=== PATIENT | female | born 1985 | race Two or more races ===

== ENCOUNTER 2017-04-21 05:26 | Inpatient (IN) | payer SELFPAY ==
[~2017-04-21] VITALS: Ht 157.5 cm; Wt 73.5 kg
[2017-04-21] MEDS ORDERED: SODIUM CHLORIDE 0.9% 1,000 ML IV ONE ×2 (06:11→13:31)
[2017-04-21] MEDS ORDERED: MORPHINE SULFATE 4 MG/ML CPJ (NOT FOR IM USE) IV STA (06:11)
[2017-04-21] MEDS ORDERED: ONDANSETRON HCL 4MG/2ML VIAL IV STA (06:11)
[2017-04-21 06:42] LABS: BASOPHILS % 0.4 % (0.0-2.0); EOSINOPHILS % 0.9 % (0.0-5.0); HEMOGLOBIN. 10.8 g/dL (12.0-16.0); LYMPHOCYTES % 9.5 % (20.0-50.0); MEAN CORPUSCULAR HEMOGLOBIN 32.7 pg (28.0-32.0); MEAN CORPUSCULAR VOLUME 93.7 fL (81.0-99.0); MEAN PLATELET VOLUME 8.9 fl (7.4-10.4); MONOCYTES % 5.9 % (2.0-8.0); NEUTROPHILS % 83.3 % (40.0-76.0); PLATELET 196 x1000/uL (130-400)
[2017-04-21 06:50] LABS: PROTHROMBIN TIME 10.6 sec
[2017-04-21] MEDS ORDERED: DEXT 5%/LR + PITOCIN 20UNITS/L 1,000 ML IV ONE (07:00)
[2017-04-21 07:05] LABS: CARBON DIOXIDE 23 mEq/L (21-32); CHLORIDE 106 mEq/L (98-107)
[2017-04-21 07:13] LABS: B-HCG QUANTITATIVE 19414 mIU/mL (<3)
[2017-04-21] MEDS ORDERED: MORPHINE SULFATE 4 MG/ML CPJ (NOT FOR IM USE) IV ONE ×2 (10:15→13:00)
[2017-04-21] MEDS ORDERED: ONDANSETRON HCL 4MG/2ML VIAL IV ONE ×2 (10:15→13:00)
[2017-04-21 10:50] LABS: BASOPHILS % 0.1 % (0.0-2.0); EOSINOPHILS % 0.1 % (0.0-5.0); HEMATOCRIT. 26.3 % (36.0-48.0); HEMOGLOBIN. 9.3 g/dL (12.0-16.0); LYMPHOCYTES % 8.1 % (20.0-50.0); MEAN CORPUSCULAR HEMOGLOBIN 33.1 pg (28.0-32.0); MEAN CORPUSCULAR VOLUME 93.5 fL (81.0-99.0); MEAN PLATELET VOLUME 8.4 fl (7.4-10.4); MONOCYTES % 4.8 % (2.0-8.0); NEUTROPHILS % 86.9 % (40.0-76.0); PLATELET 173 x1000/uL (130-400); RED BLOOD CELL COUNT 2.81 mill/uL (4.2-5.4); RED CELL DISTRIBUTION WIDTH 14.1 % (11.6-14.6)
[2017-04-21] MEDS ORDERED: DEXT 5%/0.45% NACL 1000ML 1,000 ML IV ONE (12:56)
[2017-04-21] MEDS ORDERED: MORPHINE SULFATE 2 MG/ML CPJ (NOT FOR IM USE) IV PRN (13:00)
[2017-04-21 14:37] LABS: BASOPHILS % 0.3 % (0.0-2.0); EOSINOPHILS % 0.2 % (0.0-5.0); HEMATOCRIT. 22.2 % (36.0-48.0); HEMOGLOBIN. 7.4 g/dL (12.0-16.0); LYMPHOCYTES % 13.4 % (20.0-50.0); MEAN CORPUSCULAR HEMOGLOBIN 32.2 pg (28.0-32.0); MEAN CORPUSCULAR VOLUME 95.9 fL (81.0-99.0); MEAN PLATELET VOLUME 9.2 fl (7.4-10.4); MONOCYTES % 6.6 % (2.0-8.0); NEUTROPHILS % 79.5 % (40.0-76.0); PLATELET 157 x1000/uL (130-400); RED BLOOD CELL COUNT 2.31 mill/uL (4.2-5.4); RED CELL DISTRIBUTION WIDTH 14.2 % (11.6-14.6)
[2017-04-21] MEDS ORDERED: ACETAMINOPHEN 325MG TABLET PO ONE (16:00)
[2017-04-21 16:30] VITALS: BP 92/56
[2017-04-21 17:00] VITALS: BP 92/56
[2017-04-21] MEDS ORDERED: BISACODYL 10MG SUPP PR PRN (17:30)
[2017-04-21] MEDS ORDERED: IBUPROFEN 400MG TABLET PO PRN (17:30)
[2017-04-21] MEDS ORDERED: PNV1TABL76 MT (18:08)
[2017-04-21] MEDS: DEXT 5%/LR + PITOCIN 20UNITS/L 1,000 ML IV SCH (19:53)
[2017-04-21 20:00] VITALS: BP 90/45
[2017-04-21] MEDS: ACETAMINOPHEN WITH CODEINE 300/30MG TABLET PO PRN (21:20)
[2017-04-21] MEDS: SIMETHICONE 80MG TABLET CHEW PO SCH ×2 (21:33→21:36)
[2017-04-21] MEDS: DOCUSATE SODIUM 100MG CAPSULE PO SCH (21:34)
[2017-04-21] MEDS: AMPICILLIN 2,000 MG in SODIUM CHLORIDE 0.9% 100 ML IV SCH (21:35)
[2017-04-21] MEDS: GENTAMICIN 120MG PREMIX 100 ML IV SCH (21:36)
[2017-04-21] MEDS: CLINDAMYCIN 900 MG in DEXTROSE 5% WATER 50 ML IV SCH (21:36)
[2017-04-22] VITALS (19 sets, daily range): BP systolic 70–105; BP diastolic 36–69
[2017-04-22] MEDS: ACETAMINOPHEN WITH CODEINE 300/30MG TABLET PO PRN ×3 (00:11→09:08)
[2017-04-22] MEDS: AMPICILLIN 2,000 MG in SODIUM CHLORIDE 0.9% 100 ML IV SCH ×4 (00:11→18:41)
[2017-04-22] MEDS ORDERED: ALBUMIN HUMAN 25GM/500ML (5%) IV ONE (01:30)
[2017-04-22 02:21] LABS: HEMATOCRIT 17.9 % (36.0-48.0); HEMOGLOBIN 6.3 g/dL (12.0-16.0)
[2017-04-22] MEDS: CLINDAMYCIN 900 MG in DEXTROSE 5% WATER 50 ML IV SCH ×3 (04:57→21:41)
[2017-04-22] MEDS ORDERED: ONDANSETRON HCL 4MG/2ML VIAL IV PRN (07:00)
[2017-04-22] MEDS: FERROUS SULFATE 325MG TABLET PO SCH ×3 (08:08→17:46)
[2017-04-22] MEDS: SIMETHICONE 80MG TABLET CHEW PO SCH ×4 (08:08→21:41)
[2017-04-22] MEDS: GENTAMICIN 120MG PREMIX 100 ML IV SCH ×2 (08:58→21:41)
[2017-04-22] MEDS: DEXT 5%/LR + PITOCIN 20UNITS/L 1,000 ML IV SCH ×2 (08:59→09:36)
[2017-04-22 10:46] LABS: HEMATOCRIT. 23.8 % (36.0-48.0); HEMOGLOBIN. 8.2 g/dL (12.0-16.0); MEAN CORPUSCULAR HEMOGLOBIN 31.7 pg (28.0-32.0); MEAN CORPUSCULAR VOLUME 92.5 fL (81.0-99.0); MEAN PLATELET VOLUME 8.9 fl (7.4-10.4); PLATELET 120 x1000/uL (130-400); RED BLOOD CELL COUNT 2.58 mill/uL (4.2-5.4); RED CELL DISTRIBUTION WIDTH 14.4 % (11.6-14.6)
[2017-04-22 11:44] LABS: PLATELET ESTIMATE NORMAL
[2017-04-22] MEDS: DOCUSATE SODIUM 100MG CAPSULE PO SCH (21:41)
[2017-04-23] VITALS (11 sets, daily range): BP systolic 78–138; BP diastolic 42–59
[2017-04-23] MEDS: AMPICILLIN 2,000 MG in SODIUM CHLORIDE 0.9% 100 ML IV SCH ×4 (00:27→17:31)
[2017-04-23] MEDS: CLINDAMYCIN 900 MG in DEXTROSE 5% WATER 50 ML IV SCH ×3 (04:58→20:50)
[2017-04-23] MEDS: SIMETHICONE 80MG TABLET CHEW PO SCH ×4 (08:00→20:48)
[2017-04-23] MEDS: GENTAMICIN 120MG PREMIX 100 ML IV SCH (08:00)
[2017-04-23] MEDS: FERROUS SULFATE 325MG TABLET PO SCH ×3 (08:00→17:31)
[2017-04-23 20:50] LABS: BASOPHILS % 0.4 % (0.0-2.0); EOSINOPHILS % 1.7 % (0.0-5.0); HEMATOCRIT. 24.1 % (36.0-48.0); HEMOGLOBIN. 8.3 g/dL (12.0-16.0); LYMPHOCYTES % 14.6 % (20.0-50.0); MEAN CORPUSCULAR HEMOGLOBIN 31.9 pg (28.0-32.0); MEAN CORPUSCULAR VOLUME 93.1 fL (81.0-99.0); MEAN PLATELET VOLUME 8.9 fl (7.4-10.4); MONOCYTES % 5.1 % (2.0-8.0); NEUTROPHILS % 78.2 % (40.0-76.0); PLATELET 148 x1000/uL (130-400); RED BLOOD CELL COUNT 2.59 mill/uL (4.2-5.4); RED CELL DISTRIBUTION WIDTH 14.7 % (11.6-14.6)
[2017-04-23] MEDS: DOCUSATE SODIUM 100MG CAPSULE PO SCH (20:50)
== END 2017-04-23 22:20 | disposition home or self-care (01) | DRG 564 ==
LOC: ER 05:26 → 6EST 11:44 → EDBEDREQ 14:00 → ENRESERV 16:06 → 3WST 04-22 02:53
PROVIDERS: ADMIT Obstetrics & Gynecology; ATTEND Obstetrics & Gynecology
PROC: 30233N1 Transfusion of Nonautologous Red Blood Cells into Peripheral Vein, Percutaneous Approach (ICD-10-PCS; principal; 2017-04-21)
DX: O03.9 Complete or unspecified spontaneous abortion without complication (principal); D64.9 Anemia, unspecified; O99.012 Anemia complicating pregnancy, second trimester; Z3A.19 19 weeks gestation of pregnancy
CPT/HCPCS: 36415; 76856; 80053; 83690; 84702; 85014; 85018; 85025; 85610; 86078; 86850; 86900; 86920; 88305; 88309; 96361; 96365; 96375; 96376; 99285; J0290; J1580; J2270; J2405; J2590; J3490; J7030; J7040; J7050; J7060; P9016